=== PATIENT | female | born 1970 | race Caucasian/White ===

== ENCOUNTER → 2017-09-08 | Outpatient (CLI) | payer BC ==
--- NOTE | 2017-09-08 12:36 | EST ---
EXERCISE STRESS DATE OF SERVICE: 09/08/2017 AGE: 47 SEX: Female HT: WT: 135 PROTOCOL: Marc STAGE: II DURATION OF EXERCISE: 7:35 HEART RATE REST: 78 BLOOD PRESSURE REST: 113/78 MAXIMUM HEART RATE ACHIEVED: 162 MAXIMUM BLOOD PRESSURE: 155/69 85% MPHR: 146 100% MPHR: 172 METS: 9.1 INDICATIONS: Chest pain. CLINICAL INFORMATION: Baseline EKG revealed normal sinus rhythm without significant ST-T changes. Patient walked for 7 minutes 35 seconds on a standard Marc protocol. Resting heart rate was 78 beats per minute. Peak heart rate is 162 beats per minute which is more than 85% of predicted maximal. Resting blood pressure was 113/78. Peak blood pressure was 155/69. EKG did not reveal any ST-segment changes to indicate ischemia. Patient did not have any symptoms of angina. This is a negative stress test by EKG criteria. FINAL IMPRESSION: Fair exercise capacity with a negative stress test by EKG criteria. MMODL / IJN: [id number] /
== END | disposition home or self-care (01) ==
LOC: RADNMMAIN 10:39
PROVIDERS: ATTEND Nurse Practitioner
DX: R07.89 Other chest pain (principal)
CPT/HCPCS: 93017